=== PATIENT | male | born 1990 | race African-American/Black ===

== ENCOUNTER 2019-06-10 03:47 | Emergency (ER) | payer OTHER ==
[~2019-06-10] VITALS: Ht 190.5 cm; Wt 83.0 kg
[2019-06-10] MEDS ORDERED: ACETAMINOPHEN 325MG TABLET PO ONE (06:45)
[2019-06-10] MEDS ORDERED: LIDOCAINE HCL/PF 1% 10 MG/ML 5ML VIAL IJ ONE (06:45)
[2019-06-10] MEDS ORDERED: BACITRACIN ZINC OINT UDPKT TOP ONE (06:45)
[2019-06-10] MEDS ORDERED: TETANUS, DIPHTHERIA, PERTUSSIS VAC/PF 0.5ML (>7YR OLD) IM ONE (06:45)
[2019-06-10 11:20] VITALS: BP 115/67
== END 2019-06-10 11:22 | disposition home or self-care (01) ==
LOC: ER 03:47
DX: S09.8XXA Other specified injuries of head, initial encounter (principal); W18.39XA Other fall on same level, initial encounter; Y93.89 Activity, other specified; Y92.89 Other specified places as the place of occurrence of the external cause; Y99.8 Other external cause status; F17.290 Nicotine dependence, other tobacco product, uncomplicated
CPT/HCPCS: 12014; 70450; 90471; 90715; 99284; J3490; Z7610

== ENCOUNTER 2019-06-13 07:56 | Emergency (ER) | payer OTHER ==
[~2019-06-13] VITALS: Ht 190.5 cm; Wt 81.0 kg
[2019-06-13 08:00] VITALS: BP 120/80
== END 2019-06-13 09:03 | disposition home or self-care (01) ==
LOC: ER 07:56
DX: Z48.00 Encounter for change or removal of nonsurgical wound dressing (principal)
CPT/HCPCS: 99281

== ENCOUNTER 2019-06-17 12:50 | Emergency (ER) | payer OTHER ==
[~2019-06-17] VITALS: Ht 190.5 cm; Wt 81.0 kg
[2019-06-17 13:29] VITALS: BP 127/62
== END 2019-06-17 15:57 | disposition home or self-care (01) ==
LOC: ER 12:50
DX: Z48.02 Encounter for removal of sutures (principal)
CPT/HCPCS: 99282